=== PATIENT | female | born 1995 ===

== ENCOUNTER 2017-06-28 20:24 | Emergency (ER) | payer OTHER ==
[2017-06-28 20:46] VITALS: BP 115/84; PULSE 69; RESP 16; TEMP 98.3; O2SAT 98
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
--- NOTE | 2017-06-29 09:31 | RAD ---
PROCEDURE: Cervical Spine Radiographs. HISTORY: Pain. COMPARISON: None. FINDINGS: BONES: Straightening/ reversal of the normal lordosis. No fracture. Dens Intact. DISC SPACES: Normal. SOFT TISSUES: Normal. No prevertebral soft tissue swelling. OTHER FINDINGS: None. IMPRESSION: Straightening/ reversal of the normal cervical lordosis may be related to positioning/ spasm. No demonstrated fracture or dislocation.
--- NOTE | 2017-06-29 09:31 | RAD ---
PROCEDURE: Right Wrist Radiographs. HISTORY: trauma COMPARISON: None. FINDINGS: BONES: Normal. No fracture. JOINTS: Normal. No dislocation. SOFT TISSUES: Normal. OTHER FINDINGS: None. IMPRESSION: Normal right wrist radiographs.
== END 2017-06-28 23:26 | disposition home or self-care (01) ==
LOC: H.ER 20:24
DX: S60.211A Contusion of right wrist, initial encounter (principal); S16.1XXA Strain of muscle, fascia and tendon at neck level, initial encounter; S33.5XXA Sprain of ligaments of lumbar spine, initial encounter; S60.811A Abrasion of right wrist, initial encounter; V43.52XA Car driver injured in collision with other type car in traffic accident, initial encounter; Y92.410 Unspecified street and highway as the place of occurrence of the external cause; F32.9 Major depressive disorder, single episode, unspecified

== ENCOUNTER 2018-10-08 14:04 | Emergency (ER) | payer OTHER ==
[2018-10-08 14:11] VITALS: BP 107/71; PULSE 77; RESP 18; TEMP 97; O2SAT 100
--- NOTE | 2018-10-08 14:18 | ED PDOC ---
Lower Extremity Pain/Injury Time Seen by Provider: 10/08/18 14:16 Chief Complaint (Nursing): Lower Extremity Problem/Injury Chief Complaint (Provider): foot injury History Per: Patient (23 y/o female here for evaluation of foot injury today. States 22 lb weight fell on foot accidentally from closet. Notes tetanus is up to date. Patient here via ambulance.) Past Medical History Reviewed: Historical Data, Nursing Documentation, Vital Signs Vital Signs: Last Vital Signs Temp 97 F L 10/08/18 14:08 Pulse 77 10/08/18 14:08 Resp 18 10/08/18 14:08 BP 107/71 10/08/18 14:08 Pulse Ox 100 10/08/18 14:08 - Medical History PMH: Anemia, Depression, Personality Disorder (boarderline) Denies: Diabetes, Hepatitis, HIV, HTN, Chronic Kidney Disease, Seizures, Sexually Transmitted Disease - Surgical History Surgical History: - Family History Family History: States: Unknown Family Hx - Immunization History Hx Tetanus Toxoid Vaccination: No Hx Influenza Vaccination: No Hx Pneumococcal Vaccination: No - Home Medications Home Medications: Ambulatory Orders Medication Instructions Recorded Atropine/Diphenoxylate [Lonox 1 tab PO TID PRN #12 tab 07/23/17 0.025 MG-2.5 MG] Dicyclomine [Bentyl] 20 mg PO TID PRN #12 tab 07/23/17 Ibuprofen [Motrin] 600 mg PO Q8 PRN #21 tab 10/08/18 - Allergies Allergies/Adverse Reactions: Allergies Allergy/AdvReac Type Severity Reaction Status Date / Time No Known Allergies Allergy Verified 10/08/18 14:08 Review of Systems ROS Statement: Except As Marked, All Systems Reviewed And Found Negative Musculoskeletal: Positive for: Foot Pain Physical Exam - Reviewed Nursing Documentation Reviewed: Yes Vital Signs Reviewed: Yes - Physical Exam Appears: Positive for: Well, Non-toxic, No Acute Distress Head Exam: Positive for: ATRAUMATIC, NORMAL INSPECTION, NORMOCEPHALIC Skin: Positive for: Normal Color, Warm, DRY Eye Exam: Positive for: EOMI, Normal appearance, PERRL ENT: Positive for: Normal ENT Inspection Neck: Positive for: Normal, Painless ROM Cardiovascular/Chest: Positive for: Regular Rate, Rhythm Respiratory: Positive for: CNT, Normal Breath Sounds Gastrointestinal/Abdominal: Positive for: Normal Exam, Soft Back: Positive for: Normal Inspection Extremity: Positive for: Normal ROM, Tenderness (tenderness dorsum of right foot. (+) skin abrasion dorsum of fourth digit. small blister noted plantar surface of second toe.) Neurological/Psych: Positive for: Awake, Alert, Normal Tone - ECG O2 Sat by Pulse Oximetry: 100 - Progress ED Course And Treament: Acetaminophen 975mg x 1 dose xry of foot: (+) fx of distal phalanx fourth toe. BAcitracin to wound on fourth digit. Toe buddytaped Placed in hard shoe and given crutches. Disposition - Clinical Impression Clinical Impression: Toe fracture, right - Patient ED Disposition Is Patient to be Admitted: No - Disposition Referrals: Podiatry Clinic [Outside] Disposition: Routine/Home Disposition Time: 15:24 Condition: FAIR Prescriptions: Ibuprofen [Motrin] 600 mg PO Q8 PRN #21 tab PRN Reason: Pain, Moderate (4-7) Instructions: Toe Fracture (DC) Forms: [facility] ED School/Work Excuse
--- NOTE | 2018-10-08 17:00 | RAD ---
Date of service: 10/08/2018 PROCEDURE: Right Foot Radiographs. HISTORY: foot injury COMPARISON: None. TECHNIQUE: 3 views obtained. FINDINGS: BONES: There is a comminuted nondisplaced fracture of the tuft of the distal phalanx 4th digit. No dislocation or subluxation. No additional fracture throughout the remaining osseous elements of the forefoot midfoot and hindfoot bony anatomy. JOINTS: Normal. SOFT TISSUES: Normal. OTHER FINDINGS: None. IMPRESSION: Comminuted nondisplaced fracture tuft distal phalanx right 4th digit. Exam otherwise unremarkable.
== END 2018-10-08 15:55 | disposition home or self-care (01) ==
LOC: H.ER 14:04
DX: S92.415A Nondisplaced fracture of proximal phalanx of left great toe, initial encounter for closed fracture (principal); W22.8XXA Striking against or struck by other objects, initial encounter; Y92.89 Other specified places as the place of occurrence of the external cause

== ENCOUNTER 2018-10-17 23:58 | Emergency (ER) | payer SELFPAY ==
[2018-10-18 00:12] VITALS: BMI 21.7
[2018-10-18 00:15] VITALS: RESP 18
[2018-10-18 01:28] VITALS: O2SAT 99
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
[2018-10-18 03:13] VITALS: BP 112/62; PULSE 68; TEMP 98.3
== END 2018-10-18 03:13 | disposition home or self-care (01) ==
LOC: H.ER 23:58
DX: F43.20 Adjustment disorder, unspecified (principal); Z86.59 Personal history of other mental and behavioral disorders